=== PATIENT | female | born 1970 | race Caucasian/White ===

== ENCOUNTER 2017-06-22 07:10 | Inpatient (IN) | payer OTHER ==
[2017-06-16 13:41] LABS: BASOPHILS % (AUTO) 0.5 % (0.0-2.0); EOSINOPHILS % (AUTO) 7.2 % (1.0-6.0); HEMOGLOBIN 13.8 g/dL (12.0-16.0); LYMPHOCYTES # (AUTO) 2.7 K/uL (1.0-4.8); LYMPHOCYTES % (AUTO) 34.2 % (22.0-44.0); MEAN CORPUSCULAR HEMOGLOBIN 30.5 pg (26.0-34.0); MEAN CORPUSCULAR HGB CONC 34.6 G/dL (31.0-37.0); MEAN CORPUSCULAR VOLUME 88 fL (80-100); MONOCYTES # (AUTO) 0.6 K/uL (0.1-1.0); MONOCYTES % (AUTO) 7.6 % (2.0-9.0); NEUTROPHILS % (AUTO) 50.5 % (40.0-70.0); PLATELET COUNT (AUTO) 331 K/uL (150-450); RED BLOOD CELL COUNT(AUTO) 4.53 MIL/uL (4.00-5.20); RED CELL DISTRIBUTION WIDTH 12.5 % (11.5-14.5); WHITE BLOOD COUNT (AUTO) 7.9 K/uL (4.5-11.0)
[2017-06-16 13:55] LABS: ANION GAP 6 mmol/L (8-16); CALCIUM, TOTAL 8.4 mg/dL (8.8-10.5); CARBON DIOXIDE 28 mmol/L (22-29); CHLORIDE 101 mmol/L (98-107); CREATININE 0.86 mg/dL (0.60-1.30); GLOMERULAR FILTR. RATE CALC > 60 mL/min (>60); POTASSIUM 4.4 mmol/L (3.5-5.1); SODIUM SERUM 135 mmol/L (136-145); UREA NITROGEN, BLOOD 14 mg/dL (7-18)
[2017-06-16 13:57] LABS: PROTHROMBIN TIME 10.9 SEC (9.4-11.6)
[2017-06-16 13:59] LABS: ALANINE AMINOTRANSFERASE 22 U/L (12-78); ALBUMIN 3.6 g/dL (3.4-5.0); ASPARTATE AMINOTRANSFERASE 14 U/L (15-37); BILIRUBIN,TOTAL 0.5 mg/dL (0.1-1.0); TOTAL PROTEIN, SERUM 7.3 g/dL (6.4-8.2)
[~2017-06-22] VITALS: Ht 160 cm; Wt 86.5 kg
[~2017-06-22 07:10] MED LIST: CeFAZolin 2 GM/DEXTROSE 50 ML IV ONE; DIPH25 PO; RINGERS SOLUTION,LACTATED 1,000 ML IV ONE
[2017-06-22] MEDS ORDERED: RINGERS SOLUTION,LACTATED 0 ML IV ONE (07:19)
[2017-06-22] MEDS ORDERED: BUPIVACAINE HCL/PF 0.5% 30 ML VIAL ONE (07:19)
[2017-06-22] MEDS ORDERED: CeFAZolin 2 GM/DEXTROSE 0 ML IV ONE (07:19)
[2017-06-22] MEDS ORDERED: GUM MASTIC/STORAX/MSAL/ALCOHOL LIQUID 0.67 ML VIAL TP ONE (07:19)
[2017-06-22] MEDS ORDERED: RINGERS SOLUTION,LACTATED 1,000 ML IV ONE (07:20)
[2017-06-22] MEDS ORDERED: ACETAMINOPHEN 1000 MG/ISO-OSM 100 ML IV SCH (08:00)
[2017-06-22] MEDS ORDERED: MEPERIDINE-PF 25 MG/ML SYRINGE IVP PRN (08:15)
[2017-06-22] MEDS ORDERED: ZOLPIDEM TARTRATE 5 MG TABLET PO PRN (08:15)
[2017-06-22] MEDS ORDERED: CYCLOBENZAPRINE HCL 10 MG TABLET PO PRN (08:15)
[2017-06-22] MEDS ORDERED: PROMETHAZINE HCL 25 MG/ML VIAL IM PRN (08:15)
[2017-06-22] MEDS ORDERED: FentaNYL CITRATE-PF 100 MCG/2 ML VIAL IVP PRN (08:15)
[2017-06-22] MEDS ORDERED: ONDANSETRON HCL 4 MG/2 ML VIAL IVP PRN (08:15)
[2017-06-22] MEDS ORDERED: HYDROmorphone 2 MG/ML SYRINGE IVP PRN ×2 (08:15)
[2017-06-22] MEDS ORDERED: OXYGEN THERAPY IH SCH (08:22)
[2017-06-23] MEDS ORDERED: OxyCODONE HCL/ACETAMINOPHEN 10-325 MG TABLET PO PRN (14:00)
== END 2017-06-22 09:10 | disposition home or self-care (01) | DRG 552 ==
LOC: 4E 07:10
PROVIDERS: ADMIT Orthopaedic Surgery Orthopaedic Surgery of the Spine; ATTEND Orthopaedic Surgery Orthopaedic Surgery of the Spine
DX: M50.122 Cervical disc disorder at C5-C6 level with radiculopathy (principal); Z53.9 Procedure and treatment not carried out, unspecified reason
CPT/HCPCS: 87081; J0131; J0690; J3490; J7120

== ENCOUNTER 2017-06-24 04:51 | Inpatient (IN) | payer MEDICAID, OTHER ==
[~2017-06-24] VITALS: Ht 160 cm; Wt 86.4 kg
[2017-06-24] VITALS (7 sets, daily range): BP systolic 100–127; BP diastolic 54–79
[~2017-06-24 04:51] MED LIST changes: -CeFAZolin 2 GM/DEXTROSE 50 ML IV ONE; -RINGERS SOLUTION,LACTATED 1,000 ML IV ONE
[2017-06-24] MEDS ORDERED: RINGERS SOLUTION,LACTATED 1,000 ML IV ONE ×3 (05:01→06:46)
[2017-06-24] MEDS ORDERED: CeFAZolin 2 GM/DEXTROSE 50 ML IV ONE ×2 (05:01→05:30)
[2017-06-24] MEDS ORDERED: ONDANSETRON HCL 4 MG/2 ML VIAL IM PRN (07:15)
[2017-06-24] MEDS ORDERED: PROMETHAZINE HCL 25 MG/ML VIAL IM PRN (07:15)
[2017-06-24] MEDS ORDERED: FentaNYL CITRATE-PF 100 MCG/2 ML VIAL IVP PRN (07:15)
[2017-06-24] MEDS ORDERED: MEPERIDINE-PF 25 MG/ML SYRINGE IVP PRN (07:15)
[2017-06-24] MEDS: ACETAMINOPHEN 1000 MG/ISO-OSM 100 ML IV SCH ×3 (07:15→23:21)
[2017-06-24] MEDS ORDERED: OXYGEN THERAPY IH SCH (08:00)
[2017-06-24] MEDS ORDERED: MEPERIDINE-PF 25 MG/ML SYRINGE ONE (08:13)
[2017-06-24] MEDS ORDERED: HYDROmorphone 2 MG/ML SYRINGE ONE (08:14)
[2017-06-24] MEDS: HYDROmorphone 2 MG/ML SYRINGE IVP PRN ×5 (08:15→19:04)
[2017-06-24] MEDS ORDERED: HYDROmorphone 2 MG/ML SYRINGE IVP ONE (08:35)
[2017-06-24] MEDS: CYCLOBENZAPRINE HCL 10 MG TABLET PO SCH ×3 (09:00→20:42)
[2017-06-24] MEDS ORDERED: INFLUENZA VIRUS VACCINE QVS 2017-18 (3YR+)/PF 60 MCG/0.5 ML SYRINGE IM ONE (11:45)
[2017-06-24] MEDS: BISACODYL 5 MG EC TABLET PO SCH (19:03)
[2017-06-24] MEDS ORDERED: DiphenhydrAMINE HCL 25 MG CAPSULE PO PRN (21:30)
[2017-06-24] MEDS ORDERED: KETAMINE HCL 50 MG/ML 10 ML VIAL IVP ONE (23:37)
[2017-06-24] MEDS ORDERED: FentaNYL CITRATE-PF 100 MCG/2 ML VIAL IVP ONE (23:37)
[2017-06-24] MEDS ORDERED: METOCLOPRAMIDE HCL 5 MG/ML 2 ML VIAL IVP ONE (23:37)
[2017-06-24] MEDS ORDERED: SUCCINYLCHOLINE CHLORIDE 20 MG/ML 10 ML VIAL IVP ONE (23:37)
[2017-06-24] MEDS ORDERED: ROCURONIUM BROMIDE 10 MG/ML 5 ML VIAL IVP ONE (23:37)
[2017-06-24] MEDS ORDERED: NEOSTIGMINE METHYLSULFATE 1 MG/ML 10 ML VIAL IVP ONE (23:37)
[2017-06-24] MEDS ORDERED: ONDANSETRON HCL 4 MG/2 ML VIAL IVP ONE (23:37)
[2017-06-24] MEDS ORDERED: LIDOCAINE HCL/PF 2% 5 ML VIAL IM ONE (23:37)
[2017-06-24] MEDS ORDERED: PROPOFOL 1% 20 ML VIAL IVP ONE (23:37)
[2017-06-24] MEDS ORDERED: MIDAZOLAM HCL 2 MG/2 ML VIAL IVP ONE (23:37)
[2017-06-24] MEDS ORDERED: DEXAMETHASONE SOD PHOS 4 MG/ML VIAL IVP ONE (23:37)
[2017-06-24] MEDS ORDERED: GLYCOPYRROLATE 0.2 MG/ML VIAL IM ONE (23:37)
[2017-06-25 00:40] VITALS: BP 99/79
[2017-06-25 05:18] VITALS: BP 95/63
[2017-06-25] MEDS: HYDROmorphone 2 MG/ML SYRINGE IVP PRN (05:18)
[2017-06-25 07:30] VITALS: BP 111/65
[2017-06-25] MEDS: CYCLOBENZAPRINE HCL 10 MG TABLET PO SCH (08:15)
[2017-06-25] MEDS: ACETAMINOPHEN 1000 MG/ISO-OSM 100 ML IV SCH (08:15)
[2017-06-25] MEDS: BISACODYL 5 MG EC TABLET PO SCH (08:15)
[2017-06-25 11:30] VITALS: BP 125/79
== END 2017-06-25 13:30 | disposition home or self-care (01) | DRG 518 ==
LOC: 4E 04:51
PROVIDERS: ADMIT Orthopaedic Surgery Orthopaedic Surgery of the Spine; ATTEND Orthopaedic Surgery Orthopaedic Surgery of the Spine
PROC: 00NW0ZZ Release Cervical Spinal Cord, Open Approach (ICD-10-PCS; 2017-06-24)
PROC: 0RR30JZ Replacement of Cervical Vertebral Disc with Synthetic Substitute, Open Approach (ICD-10-PCS; principal; 2017-06-24 06:30)
DX: M48.02 Spinal stenosis, cervical region (principal); E66.9 Obesity, unspecified; M54.12 Radiculopathy, cervical region; Z68.33 Body mass index [BMI] 33.0-33.9, adult
CPT/HCPCS: 87081; 97116; 97161; 97165; 97530; C1713; J0131; J0330; J0690; J1100; J1170; J2175; J2250; J2405; J2704; J2765; J3010; J3490; J7120

== ENCOUNTER 2018-02-01 05:06 | Inpatient (IN) | payer OTHER ==
[~2018-02-01] VITALS: Ht 160 cm; Wt 83.2 kg
[~2018-02-01 05:06] MED LIST changes: +CeFAZolin 2 GM/DEXTROSE 50 ML IV ONE; +RINGERS SOLUTION,LACTATED 1,000 ML IV ONE
[2018-02-01] MEDS ORDERED: VANCOMYCIN HCL 1 GM/VIAL ONE (05:21)
[2018-02-01] MEDS ORDERED: BUPIVACAINE HCL/PF 0.5% 30 ML VIAL ONE (05:21)
[2018-02-01 05:53] LABS: BASOPHILS % (AUTO) 3.1 % (0.0-2.0); EOSINOPHILS % (AUTO) 9.6 % (1.0-6.0); HEMATOCRIT 37.9 % (36-46); HEMOGLOBIN 13.4 g/dL (12.0-16.0); LYMPHOCYTES # (AUTO) 2.4 K/uL (1.0-4.8); LYMPHOCYTES % (AUTO) 35.8 % (22.0-44.0); MEAN CORPUSCULAR HEMOGLOBIN 31.1 pg (26.0-34.0); MEAN CORPUSCULAR HGB CONC 35.3 G/dL (31.0-37.0); MEAN CORPUSCULAR VOLUME 88 fL (80-100); MONOCYTES # (AUTO) 0.6 K/uL (0.1-1.0); MONOCYTES % (AUTO) 9.4 % (2.0-9.0); NEUTROPHILS # (AUTO) 2.8 K/uL (1.8-7.7); NEUTROPHILS % (AUTO) 42.1 % (40.0-70.0); PLATELET COUNT (AUTO) 260 K/uL (150-450); RED BLOOD CELL COUNT(AUTO) 4.31 MIL/uL (4.00-5.20); RED CELL DISTRIBUTION WIDTH 13.1 % (11.5-14.5)
[2018-02-01 06:07] LABS: PROTHROMBIN TIME 10.4 SEC (9.4-11.6)
[2018-02-01 06:12] LABS: CALCIUM, TOTAL 8.3 mg/dL (8.8-10.5); CREATININE 0.99 mg/dL (0.60-1.30); POTASSIUM 4.1 mmol/L (3.5-5.1)
[2018-02-01 06:17] LABS: ALBUMIN 3.3 g/dL (3.4-5.0); BILIRUBIN,TOTAL 0.4 mg/dL (0.1-1.0); TOTAL PROTEIN, SERUM 6.9 g/dL (6.4-8.2)
[2018-02-01] MEDS ORDERED: MEPERIDINE HCL/PF 25 MG/0.5 ML AMP IVP PRN (06:30)
[2018-02-01] MEDS ORDERED: FentaNYL CITRATE-PF 100 MCG/2 ML VIAL IVP PRN (06:30)
[2018-02-01] MEDS ORDERED: HYDROmorphone 2 MG/ML SYRINGE IVP PRN (06:30)
[2018-02-01] MEDS ORDERED: BUPIVACAINE LIPOSOME/PF 1.3%-13.3MG/ML SUSPENSION 20 ML VIAL INJ ONE (06:30)
[2018-02-01] MEDS ORDERED: ZOLPIDEM TARTRATE 10 MG TABLET PO PRN (06:45)
[2018-02-01] MEDS ORDERED: MAG HYDROX/AL HYDROX/SIMETH 30 ML SUSP UDCUP PO PRN (06:45)
[2018-02-01] MEDS ORDERED: DiphenhydrAMINE HCL 50 MG/ML VIAL IVP PRN (06:45)
[2018-02-01] MEDS ORDERED: PROPOFOL 1% 20 ML VIAL IVP ONE (08:00)
[2018-02-01] MEDS ORDERED: ROCURONIUM BROMIDE 10 MG/ML 5 ML VIAL IVP ONE (08:00)
[2018-02-01] MEDS ORDERED: NEOSTIGMINE METHYLSULFATE 1 MG/ML 10 ML VIAL IVP ONE (08:00)
[2018-02-01] MEDS ORDERED: GLYCOPYRROLATE 0.2 MG/ML VIAL IM ONE (08:00)
[2018-02-01] MEDS ORDERED: LIDOCAINE HCL/PF 2% 5 ML SYRINGE IVP ONE (08:00)
[2018-02-01] MEDS ORDERED: SUCCINYLCHOLINE CHLORIDE 20 MG/ML 10 ML VIAL IVP ONE (08:00)
[2018-02-01] MEDS ORDERED: DEXAMETHASONE SOD PHOS 4 MG/ML VIAL IVP ONE (08:00)
[2018-02-01] MEDS ORDERED: OXYGEN THERAPY IH SCH (08:00)
[2018-02-01] MEDS ORDERED: METOCLOPRAMIDE HCL 5 MG/ML 2 ML VIAL IVP ONE (08:00)
[2018-02-01] MEDS ORDERED: HYDROmorphone HCL 2 MG TABLET PO STA (08:04)
[2018-02-01] MEDS ORDERED: HYDROmorphone HCL 2 MG TABLET ONE (08:13)
[2018-02-01] MEDS ORDERED: DOCUSATE SODIUM 100 MG CAPSULE PO SCH (09:00)
[2018-02-01] MEDS ORDERED: FentaNYL CITRATE-PF 100 MCG/2 ML VIAL IVP ONE (09:00)
[2018-02-01] MEDS ORDERED: MIDAZOLAM HCL 2 MG/2 ML VIAL IVP ONE (09:00)
== END 2018-02-01 09:40 | disposition home or self-care (01) | DRG 517 ==
LOC: 4E 05:06
PROVIDERS: ADMIT Orthopaedic Surgery Orthopaedic Surgery of the Spine; ATTEND Orthopaedic Surgery Orthopaedic Surgery of the Spine
PROC: 0QB10ZZ Excision of Sacrum, Open Approach (ICD-10-PCS; 2018-02-01)
PROC: 0QB00ZZ Excision of Lumbar Vertebra, Open Approach (ICD-10-PCS; principal; 2018-02-01 06:30)
DX: M51.27 Other intervertebral disc displacement, lumbosacral region (principal)
CPT/HCPCS: 87081; C9290; J0330; J0690; J1100; J2250; J2704; J2765; J3010; J3370; J3490; J7120